=== PATIENT | male | born 1950 | race Caucasian/White ===

== ENCOUNTER 2021-12-23 15:51 | Emergency (ER) | payer MEDICARE, OTHER ==
[~2021-12-23] VITALS: Ht 162.6 cm; Wt 72.6 kg
[2021-12-23] MEDS ORDERED: IPRAT-ALBUT 0.5-3 ML INH (16:14)
[2021-12-23] MEDS ORDERED: COMBIVENT RESPIM4 G1 INH (16:15)
[2021-12-23 16:33] LABS: BASOPHILS ABSOLUTE AUTO 0.03 K/mm3 (0.00-0.23); BASOPHILS PERCENT AUTO 0 % (0-2); EOSINOPHILS ABSOLUTE AUTO 0.53 K/mm3 (0.00-0.68); EOSINOPHILS PERCENT AUTO 7 % (0-6); Hematocrit 45.5 % (37.0-53.0); Hemoglobin 14.2 g/dL (13.5-17.5); IMMATURE GRAN ABSOLUTE AUTO 0.02 K/mm3 (0.00-0.10); IMMATURE GRAN PERCENT AUTO 0 % (0-1); LYMPHOCYTES ABSOLUTE AUTO 0.85 K/mm3 (0.84-5.20); LYMPHOCYTES PERCENT AUTO 11 % (21-46); MONOCYTES ABSOLUTE AUTO 0.99 K/mm3 (0.16-1.47); MONOCYTES PERCENT AUTO 13 % (4-13); Mean Corpuscular HGB 31.1 pg (26.0-34.0); Mean Corpuscular HGB Conc 31.2 g/dL (31.5-36.5); Mean Corpuscular Volume 100 fL (80-100); Mean Platelet Volume 10.1 fL (9.1-12.4); NEUTROPHILS ABSOLUTE AUTO 5.31 K/mm3 (1.96-9.15); NEUTROPHILS PERCENT AUTO 69 % (41-73); Platelet Count 271 K/mm3 (150-400); RDW Coefficient Variation 12.1 % (11.7-14.2); RDW Standard Deviation 45.1 fL (35.1-46.3); Red Blood Cell Count 4.56 M/mm3 (4.30-5.90); White Blood Cell Count 7.73 K/mm3 (4.00-11.30)
[2021-12-23 16:56] LABS: Alanine Aminotransfer (ALT/SGP 23 U/L (12-78); Albumin, Blood 3.6 g/dL (3.4-5.0); Albumin/Globulin Ratio 0.8 (0.8-1.8); Alk Phos 97 U/L (50-136); Anion Gap 3 mmol/L (6-16); Aspartate Aminotrans (AST/SGOT 23 U/L (12-37); Bilirubin, Total 0.4 mg/dL (0.1-1.0); Blood Urea Nitrogen 9 mg/dL (8-24); Bun/Creatinine Ratio 15.7 (12.0-20.0); CO2, Blood 39 mmol/L (21-32); Calcium, Blood 9.2 mg/dL (8.5-10.1); Chloride, Blood 92 mmol/L (98-108); Creatinine, Blood 0.58 mg/dL (0.60-1.20); Globulin, Blood 4.5 g/dL (2.2-4.0); Glomerular Filtration Rate >60 (60-); Glucose, Blood 94 mg/dL (70-99); Potassium, Blood 4.4 mmol/L (3.5-5.5); Sodium, Blood 134 mmol/L (136-145); Total Protein, Blood 8.1 g/dL (6.4-8.2)
== END 2021-12-23 19:20 | disposition home or self-care (01) ==
LOC: ER 15:51
PROVIDERS: Emergency Medicine
DX: R42 Dizziness and giddiness (principal); J44.9 Chronic obstructive pulmonary disease, unspecified; Z87.891 Personal history of nicotine dependence; Z79.899 Other long term (current) drug therapy
CPT/HCPCS: 36415; 71045; 80053; 84484; 85025; 93005; 93010; 94640; 99284-25; J7120

== ENCOUNTER 2022-07-03 08:35 | Inpatient (IN) | payer MEDICARE, OTHER ==
[~2022-07-03] VITALS: Ht 167.6 cm; Wt 49.3 kg
[~2022-07-03 08:35] MED LIST: COMBIVENT RESPIM4 G1 INH; IPRAT-ALBUT 0.5-3 ML INH
[2022-07-03] MEDS ORDERED: ARIPIPRAZOLE2 M1 PO (08:47)
[2022-07-03] MEDS ORDERED: ALBUTEROL1.25 MG/3 IH (08:47)
[2022-07-03 09:31] LABS: BASOPHILS ABSOLUTE AUTO 0.04 K/mm3 (0.00-0.23); BASOPHILS PERCENT AUTO 0 % (0-2); EOSINOPHILS ABSOLUTE AUTO 0.26 K/mm3 (0.00-0.68); EOSINOPHILS PERCENT AUTO 2 % (0-6); Hematocrit 41.9 % (37.0-53.0); Hemoglobin 12.5 g/dL (13.5-17.5); IMMATURE GRAN ABSOLUTE AUTO 0.03 K/mm3 (0.00-0.10); IMMATURE GRAN PERCENT AUTO 0 % (0-1); LYMPHOCYTES ABSOLUTE AUTO 0.63 K/mm3 (0.84-5.20); LYMPHOCYTES PERCENT AUTO 6 % (21-46); MONOCYTES ABSOLUTE AUTO 0.69 K/mm3 (0.16-1.47); MONOCYTES PERCENT AUTO 6 % (4-13); Mean Corpuscular HGB Conc 29.8 g/dL (31.5-36.5); Mean Corpuscular Volume 104 fL (80-100); Mean Platelet Volume 11.1 fL (9.1-12.4); NEUTROPHILS ABSOLUTE AUTO 9.89 K/mm3 (1.96-9.15); NEUTROPHILS PERCENT AUTO 86 % (41-73); Platelet Count 211 K/mm3 (150-400); RDW Coefficient Variation 12.3 % (11.7-14.2); RDW Standard Deviation 47.8 fL (35.1-46.3); Red Blood Cell Count 4.03 M/mm3 (4.30-5.90); White Blood Cell Count 11.54 K/mm3 (4.00-11.30)
[2022-07-03 09:56] LABS: Alanine Aminotransfer (ALT/SGP 15 U/L (12-78); Albumin, Blood 3.3 g/dL (3.4-5.0); Albumin/Globulin Ratio 0.7 (0.8-1.8); Alk Phos 99 U/L (50-136); Aspartate Aminotrans (AST/SGOT 20 U/L (12-37); Bilirubin, Total 0.5 mg/dL (0.1-1.0); Blood Urea Nitrogen 7 mg/dL (8-24); Bun/Creatinine Ratio 18.2 (12.0-20.0); Chloride, Blood 90 mmol/L (98-108); Creatinine, Blood 0.39 mg/dL (0.60-1.20); Globulin, Blood 4.9 g/dL (2.2-4.0); Glomerular Filtration Rate 117 (60-); Glucose, Blood 159 mg/dL (70-99); Potassium, Blood 4.2 mmol/L (3.5-5.5); Sodium, Blood 137 mmol/L (136-145); Total Protein, Blood 8.2 g/dL (6.4-8.2)
[2022-07-03 09:57] LABS: Anion Gap Unable to Calculate mmol/L (6-16); CO2, Blood >45 mmol/L (21-32)
[2022-07-03 10:31] LABS: Influenza A, PCR NEGATIVE (NEGATIVE); Influenza B, PCR NEGATIVE (NEGATIVE); Resp Syncytial Virus, PCR NEGATIVE (NEGATIVE); SARS-Cov-2 (COVID-19) PCR, MMC NEGATIVE (NEGATIVE)
[2022-07-03] MEDS ORDERED: SPIRIVA RESPIMAT4 G2 INH (11:54)
[2022-07-03 16:40] LABS: Base Excess Venous 21.7 mmol/L; Bicarbonate Venous 41.1 mmol/L (24.0-30.0); PCO2 Venous 83.1 mmHg (38-42); pH Blood Venous 7.36 (7.34-7.37)
--- NOTE | 2022-07-03 18:15 | NUR ---
PT TRANSFERRED FROM ER AT 1625. PT ON BIPAP 15/5, FIO2 40%. PT TOLERATING WELL. PT APPEARS AGITATED AND ANXIOUS. PT IS CONFUSED ON SITUATION, TIME, AND "WHY HE IS HERE". PT DENIES SOB. LABORED BREATHING NOTED. SINUS RHYTHM W/HR IN 100'S, SBP 130'S, O2 99% ON BIPAP. FAMILY ARRIVED AT BEDSIDE AROUND 1730, FAMILY UPDATED ON CONDITION AND STATUS. PT SETTLED IN BED AND RESTING. APPEARS TO BE MUCH CALMER.
--- NOTE | 2022-07-03 21:52 | NUR ---
CARE ASSUMPTION: PATIENT IN BED WITH BIPAP IN PLACE AND RT AT BEDSIDE AT BEGINNING OF SHIFT. O2 SATS >94%. PATIENT MILDLY AGITATED WITH BIPAP IN PLACE. RT OKAYED TO REMOVE BIPAP AFTER TREATMENT COMPLETE. NC IN PLACE AT 9L AND PATIENT PLEASANT. IV FLUIDS INFUSING. PATIENT DENIES NEEDS AT THIS TIME. CALL LIGHT IN REACH BUT PATIENT CALLS OUT FOR HELP.
--- NOTE | 2022-07-03 23:08 | NUR ---
UPDATE: PATIENT O2 SATS >96% ON 8L NC. RT IN TO SEE PATIENT FOR TX AND IS CONCERNED ABOUT REPORTED 8-9L BASELINES. RT STATES O2 SATS SHOULD BE IN LOW 90S D/T PATIENT'S HEALTH HX AND HIGHER WILL RESULT IN DANGEROUS LEVELS OF CO2 RETENTION. PATIENT TITRATED TO 5L NC.
[2022-07-04 04:14] LABS: BASOPHILS ABSOLUTE AUTO 0.01 K/mm3 (0.00-0.23); BASOPHILS PERCENT AUTO 0 % (0-2); EOSINOPHILS PERCENT AUTO 0 % (0-6); Hematocrit 32.8 % (37.0-53.0); Hemoglobin 9.8 g/dL (13.5-17.5); IMMATURE GRAN ABSOLUTE AUTO 0.01 K/mm3 (0.00-0.10); IMMATURE GRAN PERCENT AUTO 0 % (0-1); LYMPHOCYTES ABSOLUTE AUTO 0.24 K/mm3 (0.84-5.20); LYMPHOCYTES PERCENT AUTO 3 % (21-46); MONOCYTES ABSOLUTE AUTO 0.23 K/mm3 (0.16-1.47); MONOCYTES PERCENT AUTO 3 % (4-13); Mean Corpuscular HGB 30.7 pg (26.0-34.0); Mean Corpuscular HGB Conc 29.9 g/dL (31.5-36.5); Mean Corpuscular Volume 103 fL (80-100); Mean Platelet Volume 11.6 fL (9.1-12.4); NEUTROPHILS ABSOLUTE AUTO 7.11 K/mm3 (1.96-9.15); NEUTROPHILS PERCENT AUTO 94 % (41-73); Platelet Count 163 K/mm3 (150-400); RDW Coefficient Variation 12.7 % (11.7-14.2); RDW Standard Deviation 47.9 fL (35.1-46.3); Red Blood Cell Count 3.19 M/mm3 (4.30-5.90)
[2022-07-04 04:38] LABS: Albumin, Blood 2.6 g/dL (3.4-5.0); Anion Gap 3 mmol/L (6-16); Blood Urea Nitrogen 10 mg/dL (8-24); CO2, Blood 39 mmol/L (21-32); Calcium, Blood 8.7 mg/dL (8.5-10.1); Chloride, Blood 94 mmol/L (98-108); Creatinine, Blood 0.38 mg/dL (0.60-1.20); Glomerular Filtration Rate 118 (60-); Glucose, Blood 172 mg/dL (70-99); Magnesium, Blood 1.8 mg/dL (1.6-2.4); Phosphorus, Blood 1.6 mg/dL (2.5-4.9); Potassium, Blood 3.8 mmol/L (3.5-5.5); Sodium, Blood 136 mmol/L (136-145)
--- NOTE | 2022-07-04 06:22 | NUR ---
SHIFT SUMMARY: PATIENT O2 DEMANDS HAVE DECREASED TO 5L NC. PATIENT WORE BIPAP FOR A FEW HOURS WHILE SLEEPING. PATIENT DENIES SOB OR CHEST PAIN. SBA TO BSC. PATIENT A&O TO SELF AND LOCATION. OFTEN BECOMES CONFUSED WHY HE IS IN HOSPITAL AND NEEDS TO BE REORIENTED. GENERALLY PLEASANT AND COOPERATIVE. MAKES NEEDS KNOWN - OCCASIONALLY HAS DIFFICULTY WITH REMOTE. BED LOW WITH CALL LIGHT IN REACH. WILL CONTINUE TO MONITOR AND REPORT TO ONCOMING RN.
--- NOTE | 2022-07-04 07:30 | NUR ---
INITIAL ASSESSMENT: Patient is awake sitting up in bed watching TV. He is alert and oriented to self only. He is able to tell me the date after looking at it on his phone. He denies pain at this time. HR sinus tach with pac's in the low 100s. Patient is having runs of SVT this AM, Dr. Skinner at bedside and is aware. LS DIM T/O. Pt has copious amounts of thin aaron sputum, sputum sample sent. Biox 94% on 3L via NC. BT+, pt reports some tenderness to left abd with palpation-he states this is chronic. PPP. He states he would like to go home this morning, Dr. Skinner says he will look into it. Patient assisted OOB to the recliner, chair alarm in place for safety. Call light in reach. Camera on for high fall risk.
--- NOTE | 2022-07-04 11:20 | NUR ---
Update: Dr. Skinner has come back around to see the patient. He would like to start the patient on PO Cardizem for his runs of SVT. PO Cardizem given now. VSS. Pt is still up in the chair waiting to go home. Patient informed we will wait to see how he does with this new medication on board and then notify the MD to see if he is safe to be discharged.
--- NOTE | 2022-07-04 13:17 | NUR ---
Upon receiving a referral for spiritual care, I visit pt. pt is sitting on a chair and and yelling, "I want to go home now!" He stands up as I enter pt's and the alarm goes off until I convince him that he is not going any where at this time. Pt sits and then tells me that he has no clothes to leave with and I explain that I can help with that when he gets ready to leave. I then see a bag of clothes in the corner of the rm. I bring him the clothes and tell him that he has his clothes. We varify that they belong to him and I set them on the bed away from his chair. He then tells me about his who is at home and is ill and not mobile but he does not know the reasons for her physical limitations. He also shares about his daily trips to a tavern near his house where he drinks beer. He tells me that he has not been able to talk to his in days because his phone is not working. I picker his phone, he tells me his contact for his spouse, Mildred, and I call her. They connect on the phone and pt appears quite content while he talks with her. I will continue to remain available to pt and family.
--- NOTE | 2022-07-04 13:45 | NUR ---
Update: Dr. Skinner called, pt has had no more runs of SVT since his dose of PO Cardizem. He states he will be up to see the patient around 2 and discharge him.
[2022-07-04] MEDS ORDERED: AZITHROMYCIN250 MG PO (14:50)
[2022-07-04] MEDS ORDERED: CEFD300 PO (14:51)
[2022-07-04] MEDS ORDERED: DILT120 PO (14:52)
[2022-07-04] MEDS ORDERED: PRED20 PO (14:53)
--- NOTE | 2022-07-04 17:15 | NUR ---
Discharge: Pt had ride set up through [facility]. His ride is here. DC instructions given to the patient and his . Scripts have been called into [facility]. Patient to home via van.
== END 2022-07-04 17:15 | disposition home or self-care (01) | DRG 193 ==
LOC: ER 08:35 → ERHOLD 11:43 → PCU 11:43
PROVIDERS: Emergency Medicine; ADMIT Family Medicine
PROC: 5A09357 Assistance with Respiratory Ventilation, Less than 24 Consecutive Hours, Continuous Positive Airway Pressure (ICD-10-PCS; principal; 2022-07-03)
DX: J18.9 Pneumonia, unspecified organism (principal); J96.21 Acute and chronic respiratory failure with hypoxia; J96.22 Acute and chronic respiratory failure with hypercapnia; J44.0 Chronic obstructive pulmonary disease with (acute) lower respiratory infection; F01.51 Vascular dementia, unspecified severity, with behavioral disturbance; E87.2 Acidosis; I47.1 Supraventricular tachycardia; Z20.822 Contact with and (suspected) exposure to COVID-19; Z79.51 Long term (current) use of inhaled steroids; Z79.899 Other long term (current) drug therapy
CPT/HCPCS: 0241U; 36415; 71045; 80053; 80069; 82803; 83605; 83735; 83880; 84484; 85025; 87070; 87205; 87449; 93005; 93010; 93246; 94640; 94644; 94660; 94664; 94762; 96374; 96375; 97110; 97162; 97166; 97535; 99285-25; A9270; J0456; J0696; J1644; J1885; J2920; J7030; J7050

== ENCOUNTER 2022-09-05 14:42 | Observation (INO) | payer MEDICARE, OTHER ==
[~2022-09-05] VITALS: Ht 167.6 cm; Wt 49.5 kg
[~2022-09-05 14:42] MED LIST changes: +ALBUTEROL1.25 MG/3 IH; +ARIPIPRAZOLE2 M1 PO; +AZITHROMYCIN250 MG PO; +CEFD300 PO; +DILT120 PO; +PRED20 PO; +SPIRIVA RESPIMAT4 G2 INH
[2022-09-05 15:48] LABS: BASOPHILS ABSOLUTE AUTO 0.03 K/mm3 (0.00-0.23); BASOPHILS PERCENT AUTO 1 % (0-2); EOSINOPHILS ABSOLUTE AUTO 0.15 K/mm3 (0.00-0.68); EOSINOPHILS PERCENT AUTO 3 % (0-6); Hematocrit 37.1 % (37.0-53.0); Hemoglobin 10.6 g/dL (13.5-17.5); IMMATURE GRAN ABSOLUTE AUTO 0.02 K/mm3 (0.00-0.10); IMMATURE GRAN PERCENT AUTO 0 % (0-1); LYMPHOCYTES ABSOLUTE AUTO 0.58 K/mm3 (0.84-5.20); LYMPHOCYTES PERCENT AUTO 11 % (21-46); MONOCYTES ABSOLUTE AUTO 0.51 K/mm3 (0.16-1.47); MONOCYTES PERCENT AUTO 10 % (4-13); Mean Corpuscular HGB 31.8 pg (26.0-34.0); Mean Corpuscular HGB Conc 28.6 g/dL (31.5-36.5); Mean Corpuscular Volume 111 fL (80-100); Mean Platelet Volume 11.9 fL (9.1-12.4); NEUTROPHILS PERCENT AUTO 76 % (41-73); Platelet Count 128 K/mm3 (150-400); RDW Coefficient Variation 12.3 % (11.7-14.2); RDW Standard Deviation 50.7 fL (35.1-46.3); Red Blood Cell Count 3.33 M/mm3 (4.30-5.90); White Blood Cell Count 5.39 K/mm3 (4.00-11.30)
[2022-09-05 15:59] LABS: Alanine Aminotransfer (ALT/SGP 31 U/L (12-78); Albumin, Blood 3.3 g/dL (3.4-5.0); Albumin/Globulin Ratio 0.8 (0.8-1.8); Alk Phos 83 U/L (50-136); Aspartate Aminotrans (AST/SGOT 32 U/L (12-37); Bilirubin, Total 0.2 mg/dL (0.1-1.0); Blood Urea Nitrogen 21 mg/dL (8-24); Bun/Creatinine Ratio 37.8 (12.0-20.0); Calcium, Blood 9.1 mg/dL (8.5-10.1); Chloride, Blood 94 mmol/L (98-108); Creatinine, Blood 0.56 mg/dL (0.60-1.20); Globulin, Blood 3.9 g/dL (2.2-4.0); Glomerular Filtration Rate 105 (60-); Glucose, Blood 151 mg/dL (70-99); Potassium, Blood 4.6 mmol/L (3.5-5.5); Sodium, Blood 142 mmol/L (136-145); Total Protein, Blood 7.2 g/dL (6.4-8.2)
[2022-09-05 16:00] LABS: CO2, Blood >45 mmol/L (21-32)
[2022-09-05] MEDS ORDERED: IBUP600 PO (16:00)
[2022-09-05] MEDS ORDERED: MELO7.5 PO (16:00)
[2022-09-05 16:01] LABS: Anion Gap Unable to Calculate mmol/L (6-16)
[2022-09-05] MEDS ORDERED: ALBUTEROL1.25 MG/3 INH (16:01)
[2022-09-05 19:15] LABS: Base Excess Venous 24.1 mmol/L; Bicarbonate Venous 45.7 mmol/L (24.0-30.0); PCO2 Venous 62.6 mmHg (38-42); pH Blood Venous 7.49 (7.34-7.37)
[2022-09-05 21:10] LABS: Source, Urine Clean Catch
[2022-09-05 21:17] LABS: Appearance, Urine Clear (Clear); Bilirubin, Urine Neg (Neg); Blood, Urine 1+ (Neg); Color, Urine Yellow (P-Yellow); Glucose Qualitative, Urine Neg (Neg); Ketones, Urine 2+ (Neg); Leukocyte Esterase, Urine 2+ (Neg); Nitrite, Urine Neg (Neg); Protein, Urine 2+ (Neg); Urobilinogen, Urine NORM (Normal)
[2022-09-05 21:33] LABS: Bacteria Few /hpf; Mucus Mod (0-Heavy); Renal Epithelial Few /hpf (0-Rare); Squamous Epithelial Cells Rare /hpf (Few)
--- NOTE | 2022-09-06 06:20 | NUR ---
ADMISSION/NOC SHIFT SUMMARY PT ARRIVED TO UNIT VIA CART @2301 LAST NIGHT. PT SLID OVER WITH STAFF ASSIST. ON 5L NC. PT ORIENTED TO SELF ONLY, CONFUSED AND NONSENSICAL AT TIMES. HX OF DEMENTIA PER REPORT. AMENABLE TO REORIENTATION. PT ARRIVED IN CLOTHES FROM HOME VISIBLY SOILED WITH OLD AND NEW URINE STAINS. PT ASSISTED OUT OF CLOTHING AND INTO GOWN AND BRIEF. AFIB/FLUTTER ON TELEMETRY AND MAINTAINED ON CARDIZEM GTT @ 5ML/5MG/HR. AFIB RATES DECREASED TO 80S/90S ON THE GTT. PT REQUESTING TO PUT CLOTHES ON AND WANTS TO LEAVE BUT UNABLE TO VERBALIZE WHERE HE IS OR WHY HE IS HERE. DR. BASURTO NOTIFIED OVERNIGHT AND ORDER FOR PRN SEROERICKAL RECEIVED. REDIRECTION WORKING AT THIS TIME. WILL PASS ON TO DAY RN
--- NOTE | 2022-09-06 09:25 | NUR ---
AM NOTE: PATIENT VERY CONFUSED AND WANTING TO GO HOME. ARGUING WITH STAFF AND HARD TO REDIRECT AT TIMES. STATES HE CAN GO HOME AND CALL HIS DOCTOR THEN. ABLE TO TELL ME HIS NAME AND . UNABLE TO EXPLAIN WHY HE IS HERE. SPOKE WITH ON PHONE THIS AM. SOUNDING VERY CONFUSED WELL. UP WITH BSC WITH FWW AND ONE PERSON ASSIST. DENIES NUMBNESS/TINGLING. ON 6-9 L NASAL CANNULA. 6L AT REST. UP TO 9L WHEN UP TO BATHROOM. LUNGS SOUNDING CLEAR AND DIM. SOB WITH EXERCTION. TELE SHOWING AFLUTTER WITH HR 80'S. ON CARDIZEM DRIP THIS AM AT 5, DISCONTINUED AND PO CARDIZEM ORDERED AND GIVEN. DENIES CHEST PAIN/PRESSURE. BP STABLE. VERY MINIMAL EDEMA IN BLE. DENIES ABDOMINAL PAIN/NAUSEA. DRINKING COFFEE AND EATING CHOCOLATE PUDDING THIS AM. USING URINAL AND BSC TO VOID. ATTENDS IN PLACE. DR. MUHAMMAD IN TO TALK WITH PATIENT THIS AM. CARE MANAGEMENT REFERRAL PLACED. WILL DISCUSS WITH FORMAT PROOFREADER. MARY STATES SHE WILL BE IN TO VISIT LATER WITH SON ZACH. CALL LIGHT IN REACH. BED ALARM AND CHAIR ALARM BOTH ON IN BED. WILL CONTINUE TO MONITOR.
--- NOTE | 2022-09-06 16:56 | NUR ---
FAMILY MEETING PLANNED WITH SON ZACH, DAUGHTER IN LAW INDIRA, HAZEL, AND DR. MUHAMMAD TOMORROW AT 0900. PATIENT IN AGGREANCE FOR FAMILY MEETING. HOPES TO HAVE MORE REALISTIC DISCHARGE GOALS WITH FAMILY. HOME O2 EVAL DONE TODAY PATIENT NEEDING UP TO 12L WHEN UP WALKING AROUND. LIPS TURNING BLUE WALKING SHORT DISTANCE. VITAL SIGNS REMAINS STABLE. UP IN CHAIR WITH CHAIR ALARM AT THIS TIME. CALL LIGHT IN REACH.
--- NOTE | 2022-09-06 18:17 | NUR ---
TRANSFER NOTE: PATIENT TRANSFERING TO [facility]. FAMILY AND PATIENT UPDATED. REPORTED OFF TO [facility]AZ VERA. WILL BE TRANSFERING IN RECLINER WITH ALL PERSONAL BELONGINGS. NO ACUTE CHANGES SEE PREVIOUS NOTES. RN ON MED FLOOR UPDATED ON FAMILY MEETING AT 0900 TOMORROW. PATIENT REMAINS ON 7L NASAL CANNULA SATING MID 90'S AT REST.
--- NOTE | 2022-09-06 18:49 | NUR ---
PT ARRIVED TO ROOM 353 VIA RECLINER CHAIR AND CHAIR ALARM RESET IN NEW ROOM. O2 IS RUNNING AT 6L/M BY HIGH FLOW.
[2022-09-06] MEDS ORDERED: COMBIVENT RESPIM4 G1 INH (23:50)
[2022-09-07 06:28] LABS: BASOPHILS PERCENT AUTO 0 % (0-2); EOSINOPHILS ABSOLUTE AUTO 0.02 K/mm3 (0.00-0.68); EOSINOPHILS PERCENT AUTO 0 % (0-6); Hematocrit 34.3 % (37.0-53.0); Hemoglobin 9.9 g/dL (13.5-17.5); IMMATURE GRAN ABSOLUTE AUTO 0.01 K/mm3 (0.00-0.10); IMMATURE GRAN PERCENT AUTO 0 % (0-1); LYMPHOCYTES ABSOLUTE AUTO 0.57 K/mm3 (0.84-5.20); LYMPHOCYTES PERCENT AUTO 11 % (21-46); MONOCYTES ABSOLUTE AUTO 0.48 K/mm3 (0.16-1.47); MONOCYTES PERCENT AUTO 9 % (4-13); Mean Corpuscular HGB 31.3 pg (26.0-34.0); Mean Corpuscular HGB Conc 28.9 g/dL (31.5-36.5); Mean Corpuscular Volume 109 fL (80-100); Mean Platelet Volume 12.1 fL (9.1-12.4); NEUTROPHILS ABSOLUTE AUTO 4.26 K/mm3 (1.96-9.15); NEUTROPHILS PERCENT AUTO 80 % (41-73); Platelet Count 138 K/mm3 (150-400); RDW Coefficient Variation 12.5 % (11.7-14.2); RDW Standard Deviation 49.7 fL (35.1-46.3); Red Blood Cell Count 3.16 M/mm3 (4.30-5.90); White Blood Cell Count 5.34 K/mm3 (4.00-11.30)
--- NOTE | 2022-09-07 06:37 | NUR ---
NOC SHIFT SUMMARY: PATIENT ALERT BUT CONFUSED AT THE BEGINNING OF SHIFT. HIGH FLOW NC O2 AT 9L PT C/O SOB WHICH INCREASED WITH ACTIVITY. PATIENT IS ANXIOUS AND WANTS TO GO AND TAKE CARE OF HIS . PROVIDED SUPPORT TO PATIENT AND EXPLAINED REASON FOR HIS ADMISSION. PATIENT C/O GENERALIZED PAIN ADMIN PRN ACETAMINOPHEN WITH GOOD RESULTS. PT SLEPT THROUGH NIGHT. PT AWAKE AT 0500 ALERT WITH LESS CONFUSION. PT STATES HE "DOES NOT FEEL GOOD" AND IS COOPERATIVE AND LESS FOCUSED ON GOING HOME. VSS.
[2022-09-07 07:01] LABS: Alanine Aminotransfer (ALT/SGP 28 U/L (12-78); Albumin, Blood 3.2 g/dL (3.4-5.0); Albumin/Globulin Ratio 0.9 (0.8-1.8); Alk Phos 71 U/L (50-136); Aspartate Aminotrans (AST/SGOT 25 U/L (12-37); Bilirubin, Total 0.2 mg/dL (0.1-1.0); Blood Urea Nitrogen 17 mg/dL (8-24); Bun/Creatinine Ratio 37.6 (12.0-20.0); Chloride, Blood 93 mmol/L (98-108); Creatinine, Blood 0.45 mg/dL (0.60-1.20); Globulin, Blood 3.5 g/dL (2.2-4.0); Glomerular Filtration Rate 112 (60-); Glucose, Blood 114 mg/dL (70-99); Potassium, Blood 4.3 mmol/L (3.5-5.5); Sodium, Blood 140 mmol/L (136-145); Total Protein, Blood 6.7 g/dL (6.4-8.2)
[2022-09-07 07:05] LABS: Anion Gap Unable to Calculate mmol/L (6-16); CO2, Blood >45 mmol/L (21-32)
--- NOTE | 2022-09-07 18:24 | NUR ---
SHIFT SUMMARY PT IN RECLINER CHAIR MOST OF DAY. 1 PERSON ASSIST UP TO BATHROOM FOR SAFETY ONLY. USING FWW. DENIES PAIN OR RESP DISTRESS. O2 INCREASED TO 12L/M WITH ACTIVITY AND THEN DROPPED BACK DOWN. FAMILY IN AND OUT OF ROOM. HAS BEEN QUITE AGREEABLE TODAY.
--- NOTE | 2022-09-08 11:41 | NUR ---
Spoke with RN [place] yesterday and discussed case. Dr Baron placed PC consult to discuss further regarding hospice and completing POLST. Pt sitting in chair and is pleasantly confused. Pt appears mildly dyspneic and denies pain at this time. Offered supportive visit. Called and spoke with Pt's daughter in law Munira. Reviewed plan of care and confirmed family's understanding of hospice philosophy. Munira reports being at work and is requesting to call this RN back. Palliative Care will remain available
--- NOTE | 2022-09-08 12:03 | NUR ---
Late Entry from Previous note. Received return phone call from daughter in law Munira. Munira reports family will be in this weekend and is agreeable to complete POLST. She reports all family members are on board with plan of placement with hospice services.
--- NOTE | 2022-09-08 19:49 | NUR ---
SHIFT SUMMARY 71-YEAR-OLD MALE, HX DEMENTIA, PLEASANT. WATCHING GOLD MINING ON TELEVISION AND TELLS OF COLD MINING IN [place]. HE ALSO MAKES TOYS OUT OF WOOD. HE IS CONCRETE WITH PAST HISTORY. CONFUSION AT OTHER TIMES, TOLD THINGS THAT WERE NOT GOING ON OVER THE PHONE. CAME IN AND SAT WITH HIM FOR QUITE SOME TIME TODAY, AND HE SEEMED MORE CONTENT. PRIOR TO HER VISIT, HE WHEELED HIMSELF IN HIS RECLINER OUT INTO THE GARZA, O2 LINE IN TOW. HE WANTED TO GO HOME. SEEMED CONTENT AT END OF SHIFT, SITTING IN BED. BED ALARM ON. CALL LIGHT NEARBY. ON 6 L O2. PTN DID HAVE ATRIAL FLUTTER, ON DILTIAZEM. TELEMETRY DISCONTINUED THIS SHIFT. . PALLIATIVE CARE INVOLVED RELATED TO COPD. DNR STATUS. CONTINUE TO MONITOR.
--- NOTE | 2022-09-09 05:08 | NUR ---
SHIFT SUMMARY Pt alert and oriented x 2-3, forgetful at times. VSS. Pt on 7L NC, with continuous pulse ox satting 90%. Has edilma appetite, provided snacks throughout the night. No complaints of pain. Asist x 1 to bedside commode. Urinal at bedside. Bed alarm on.
[2022-09-09 05:21] LABS: BASOPHILS PERCENT AUTO 0 % (0-2); EOSINOPHILS ABSOLUTE AUTO 0.02 K/mm3 (0.00-0.68); EOSINOPHILS PERCENT AUTO 0 % (0-6); Hematocrit 34.1 % (37.0-53.0); Hemoglobin 10.5 g/dL (13.5-17.5); IMMATURE GRAN ABSOLUTE AUTO 0.02 K/mm3 (0.00-0.10); IMMATURE GRAN PERCENT AUTO 0 % (0-1); LYMPHOCYTES ABSOLUTE AUTO 0.52 K/mm3 (0.84-5.20); LYMPHOCYTES PERCENT AUTO 9 % (21-46); MONOCYTES ABSOLUTE AUTO 0.69 K/mm3 (0.16-1.47); MONOCYTES PERCENT AUTO 12 % (4-13); Mean Corpuscular HGB 31.8 pg (26.0-34.0); Mean Corpuscular HGB Conc 30.8 g/dL (31.5-36.5); NEUTROPHILS ABSOLUTE AUTO 4.61 K/mm3 (1.96-9.15); NEUTROPHILS PERCENT AUTO 79 % (41-73); Platelet Count 146 K/mm3 (150-400); RDW Coefficient Variation 12.2 % (11.7-14.2); RDW Standard Deviation 46.9 fL (35.1-46.3); White Blood Cell Count 5.86 K/mm3 (4.00-11.30)
[2022-09-09 05:27] LABS: Mean Corpuscular Volume 103 fL (80-100)
[2022-09-09 05:43] LABS: Magnesium, Blood 2.1 mg/dL (1.6-2.4)
[2022-09-09 05:48] LABS: Alanine Aminotransfer (ALT/SGP 25 U/L (12-78); Albumin/Globulin Ratio 0.8 (0.8-1.8); Alk Phos 62 U/L (50-136); Aspartate Aminotrans (AST/SGOT 20 U/L (12-37); Bilirubin, Total 0.3 mg/dL (0.1-1.0); Blood Urea Nitrogen 12 mg/dL (8-24); Bun/Creatinine Ratio 24.9 (12.0-20.0); Calcium, Blood 8.7 mg/dL (8.5-10.1); Chloride, Blood 88 mmol/L (98-108); Creatinine, Blood 0.48 mg/dL (0.60-1.20); Globulin, Blood 3.7 g/dL (2.2-4.0); Glomerular Filtration Rate 110 (60-); Glucose, Blood 104 mg/dL (70-99); Phosphorus, Blood 2.4 mg/dL (2.5-4.9); Potassium, Blood 3.8 mmol/L (3.5-5.5); Sodium, Blood 138 mmol/L (136-145); Total Protein, Blood 6.7 g/dL (6.4-8.2)
[2022-09-09 05:53] LABS: Anion Gap Unable to Calculate mmol/L (6-16)
[2022-09-09 05:56] LABS: CO2, Blood >45 mmol/L (21-32)
--- NOTE | 2022-09-09 06:14 | NUR ---
Pt with critical lab: CO2 greater than 45. Notified Dr. Hall by telephone. Dr. Hall wants ABG blood draw on pt.
[2022-09-09 06:28] LABS: pH Blood Arterial 7.41 (7.35-7.45)
[2022-09-09 06:29] LABS: PO2 Arterial 67.3 mmHg (80-100)
[2022-09-09 06:33] LABS: PCO2 Arterial 82.7 mmHg (35-45)
--- NOTE | 2022-09-09 06:57 | NUR ---
NOTIFIED DR BLUM ON ABG BLOOD RESULT: pH: 7.405, CO2: 82.7, PAO2: 67.3, BICARB: 48.1, BASE EXCESS: 27.1 NO NEW ORDERS RECEIVED
--- NOTE | 2022-09-09 18:40 | NUR ---
SHIFT SUMMARY PT CAN BE DISAGREEABLE WITH STAFF. HE IS EAGER TO GO HOME AND CAN AVOID BEING COMPLAINT BECAUSE HE ASSUMES HES GOING HOME. HE IS UP 1 ASSIST TO THE BEDSIDE COMMODE. BED IN LOWEST POSITION ANC CALL LIGHT INREACH
--- NOTE | 2022-09-10 07:07 | NUR ---
SHIFT SUMMARY ALERT AND ORIENTED X 1-2. FORGETFUL AT TIMES. VSS. ON 6L NC WITH CONTINUOUS POX. USES URINAL AT BEDSIDE. NEEDS CONSTANT REMINDERS THAT PT IS AT THE HOSPITAL AND NOT AT HOME. ASKING AGAIN WHEN HE IS GOING TO GO HOME. INFORMED PT THAT IT WILL BE UP TO THE DOCTOR. BED ALARM ON.
--- NOTE | 2022-09-10 18:33 | NUR ---
SHIFT SUMMARY NO ACUTE CHANGED. PATIENT SLEPT ALL DAY AND VISITED WITH HIS THIS AFTERNOON. BED IN LOWEST POSITION AND CALL LIGHT IN REACH
--- NOTE | 2022-09-11 04:54 | NUR ---
SHIFT SUMMARY A&O X 2-3, FORGETFUL AT TIMES. VSS. PT NEEDS CONSTANT REMINDERS THAT HE IS AT THE HOSPITAL. PT ASKING MULTIPLE TIMES WHEN HE CAN GO HOME. RT INCREASED PT'S O2 TO 6L, BECAUSE PT TOLD HIM HE USES 6L NC AT HOME. PT WITH BIG APPETITE, ASKING FOR FOOD THROUGHOUT THE NIGHT. GIVEN A SANDWICH, PUDDING X 3, YOGURT, JELLO, AND KISHORE CRACKERS X 2. ATE 100% OF SNACKS GIVEN.
--- NOTE | 2022-09-11 16:47 | NUR ---
SHIFT SUMMARY PT IS VERY DISGRUNTLED. HE WANTS TO GO HOME WITH HIS , BUT HIS IS UPSET AND DOES NOT WANT HIM TO COME HOME. PT THREATENTS TO LEAVE AND WAS TOLD HE HAS THE OPTION TO LEAVE AMA, BUT IS TOO CONFUSED TO ACT ON HIS WISHES. HE IS AGITATED AND REQUIRES REDIRECTION AND REMINDERS TO WHY HE IS NI THE HOSPITAL. PT HAS BEEN TITRATED FROM 6L OF OZ TO 4 AND IS AT 93%. PALLIATIVE HAS BEEN CONSULTED TO DECIDE WHERE PT WILL DISCHARGE. BEED IN LOWEST POSITION AND CALL LIGHT IN REACH
--- NOTE | 2022-09-12 04:38 | NUR ---
SHIFT SUMMARY- PT ALERT TO SELF= PT REFUSED TO GET OUT OF CHAIR AND SLEPT T/O NIGHT IN CHAIR-PT USED URINAL IN THE NIGHT WITHOUT PROBLEMS
[2022-09-12 09:02] LABS: BASOPHILS PERCENT AUTO 0 % (0-2); EOSINOPHILS ABSOLUTE AUTO 0.32 K/mm3 (0.00-0.68); EOSINOPHILS PERCENT AUTO 7 % (0-6); Hematocrit 34.4 % (37.0-53.0); Hemoglobin 10.5 g/dL (13.5-17.5); IMMATURE GRAN ABSOLUTE AUTO 0.01 K/mm3 (0.00-0.10); IMMATURE GRAN PERCENT AUTO 0 % (0-1); LYMPHOCYTES ABSOLUTE AUTO 0.86 K/mm3 (0.84-5.20); LYMPHOCYTES PERCENT AUTO 19 % (21-46); MONOCYTES ABSOLUTE AUTO 0.76 K/mm3 (0.16-1.47); MONOCYTES PERCENT AUTO 16 % (4-13); Mean Corpuscular HGB 30.7 pg (26.0-34.0); Mean Corpuscular HGB Conc 30.5 g/dL (31.5-36.5); Mean Corpuscular Volume 101 fL (80-100); Mean Platelet Volume 11.8 fL (9.1-12.4); NEUTROPHILS ABSOLUTE AUTO 2.71 K/mm3 (1.96-9.15); NEUTROPHILS PERCENT AUTO 58 % (41-73); Platelet Count 186 K/mm3 (150-400); RDW Coefficient Variation 12.6 % (11.7-14.2); RDW Standard Deviation 46.7 fL (35.1-46.3); Red Blood Cell Count 3.42 M/mm3 (4.30-5.90); White Blood Cell Count 4.66 K/mm3 (4.00-11.30)
[2022-09-12 09:20] LABS: Albumin, Blood 2.9 g/dL (3.4-5.0); Bilirubin, Total 0.4 mg/dL (0.1-1.0); Bun/Creatinine Ratio 31.2 (12.0-20.0); Calcium, Blood 8.4 mg/dL (8.5-10.1); Creatinine, Blood 0.45 mg/dL (0.60-1.20); Potassium, Blood 3.6 mmol/L (3.5-5.5); Total Protein, Blood 5.9 g/dL (6.4-8.2)
--- NOTE | 2022-09-12 16:31 | NUR ---
SHIFT SUMMARY PT IS AxOx2-3 WITH INTERMITTENT CONFUSION/FORGETFULNESS. PT IS PLEASANT AND COOPERATIVE WITH CARE, BUT WAS AGITATED ON AND OFF THIS SHIFT. PT VERBALIZES FEELING ANXIOUS TO RETURN HOME. SPOKE WITH , HAZEL ON PHONE AT APPROX 1630, SHE STATED THAT SHE WOULD LIKE TO SEE PATIENT COME HOME ON HOSPICE. SENIOR TECHNICAL WRITER NOTIFIED OF PT'S 'S CURRENT WISHES. PT IS CURRENTLY BREATHING WITHOUT DIFFICULTY ON 6L O2 VIA NC. PT DOES GET SOB WITH ACTIVITY, BUT RECOVERS WELL AT REST. PT IS CURRENTLY SITTING UP IN CHAIR WATCHING TV. VITALS REVIEWED. CALL LIGHT IN REACH. PATIENT DENIES ANY NEEDS AT THIS TIME.
--- NOTE | 2022-09-13 05:21 | NUR ---
SHIFT SUMMARY PT A&OX 1 - PT ON 5L OXYGEN- HOME BASELINE IS 6L- PT UPSET AT BEGINNING OF SHIFT BECAUSE HE WANTS TO BE AT HOME-PLAN IS FOR PT TO DISCHARGE HOME WITH AND HOSPICE
[2022-09-13 05:55] LABS: BASOPHILS PERCENT AUTO 0 % (0-2); EOSINOPHILS PERCENT AUTO 2 % (0-6); Hematocrit 33.8 % (37.0-53.0); Hemoglobin 10.5 g/dL (13.5-17.5); IMMATURE GRAN ABSOLUTE AUTO 0.02 K/mm3 (0.00-0.10); IMMATURE GRAN PERCENT AUTO 0 % (0-1); LYMPHOCYTES ABSOLUTE AUTO 0.72 K/mm3 (0.84-5.20); LYMPHOCYTES PERCENT AUTO 16 % (21-46); MONOCYTES ABSOLUTE AUTO 0.75 K/mm3 (0.16-1.47); MONOCYTES PERCENT AUTO 16 % (4-13); Mean Corpuscular HGB 31.7 pg (26.0-34.0); Mean Corpuscular HGB Conc 31.1 g/dL (31.5-36.5); Mean Corpuscular Volume 102 fL (80-100); Mean Platelet Volume 11.3 fL (9.1-12.4); NEUTROPHILS ABSOLUTE AUTO 3.07 K/mm3 (1.96-9.15); NEUTROPHILS PERCENT AUTO 66 % (41-73); Platelet Count 179 K/mm3 (150-400); RDW Coefficient Variation 12.5 % (11.7-14.2); Red Blood Cell Count 3.31 M/mm3 (4.30-5.90); White Blood Cell Count 4.66 K/mm3 (4.00-11.30)
[2022-09-13 06:20] LABS: Albumin, Blood 2.7 g/dL (3.4-5.0); Albumin/Globulin Ratio 0.9 (0.8-1.8); Bilirubin, Total 0.2 mg/dL (0.1-1.0); Bun/Creatinine Ratio 40.2 (12.0-20.0); Calcium, Blood 8.3 mg/dL (8.5-10.1); Creatinine, Blood 0.47 mg/dL (0.60-1.20); Globulin, Blood 3.1 g/dL (2.2-4.0); Potassium, Blood 4.4 mmol/L (3.5-5.5); Total Protein, Blood 5.8 g/dL (6.4-8.2)
[2022-09-13] MEDS ORDERED: DILT180 PO (10:04)
[2022-09-13] MEDS ORDERED: ACET325 PO (10:05)
[2022-09-13] MEDS ORDERED: ASPI81CH PO (10:06)
--- NOTE | 2022-09-13 17:36 | NUR ---
ALERT AND ORIENTED TO SELF, EASILY CONFUSED, MAKES NEEDS KNOWN, CALL LIGHT WITH IN REACH, 1-2 PERSON TRASNFER, DIMISHED LS, NO SOB, 5L O2, SATS 92-98%, OOB IN CHAIR EATING BREAKFAST, PATIENT TO BE DISCHARGED HOME WITH HOSPICE TOMORROW, ALEXI CARTWRIGHT WORKING ON THE PATIENT AND HOME NEEDS, NO ACUTE CHANGES, WILL RELAY TO PM RN
--- NOTE | 2022-09-14 05:28 | NUR ---
SHIFT SUMMARY PT A&O X 1-2 PT'S IN ROOM AT BEGINNING OF SHIFT- PT SITTING UP TO CHAIR - 5L NASAL CANULA- PT SLEPT IN CHAIR - PT REFUSED TO RETURN TO BED AT BEGINNING OF SHIFT- PT GOT IN BED WITH ASSISTANCE AFTER MIDNIGHT- PT UP AND EATING SNACKS X3 THROUGHOUT THE NIGHT
[2022-09-14 06:24] LABS: BASOPHILS ABSOLUTE AUTO 0.01 K/mm3 (0.00-0.23); BASOPHILS PERCENT AUTO 0 % (0-2); EOSINOPHILS ABSOLUTE AUTO 0.49 K/mm3 (0.00-0.68); EOSINOPHILS PERCENT AUTO 8 % (0-6); Hematocrit 34.5 % (37.0-53.0); Hemoglobin 10.7 g/dL (13.5-17.5); IMMATURE GRAN ABSOLUTE AUTO 0.01 K/mm3 (0.00-0.10); IMMATURE GRAN PERCENT AUTO 0 % (0-1); LYMPHOCYTES ABSOLUTE AUTO 0.91 K/mm3 (0.84-5.20); LYMPHOCYTES PERCENT AUTO 15 % (21-46); MONOCYTES ABSOLUTE AUTO 0.74 K/mm3 (0.16-1.47); MONOCYTES PERCENT AUTO 12 % (4-13); Mean Corpuscular HGB 31.7 pg (26.0-34.0); Mean Corpuscular Volume 102 fL (80-100); Mean Platelet Volume 11.5 fL (9.1-12.4); NEUTROPHILS ABSOLUTE AUTO 4.02 K/mm3 (1.96-9.15); NEUTROPHILS PERCENT AUTO 65 % (41-73); Platelet Count 194 K/mm3 (150-400); RDW Coefficient Variation 12.6 % (11.7-14.2); RDW Standard Deviation 46.9 fL (35.1-46.3); Red Blood Cell Count 3.38 M/mm3 (4.30-5.90); White Blood Cell Count 6.18 K/mm3 (4.00-11.30)
[2022-09-14 06:40] LABS: Albumin, Blood 2.9 g/dL (3.4-5.0); Albumin/Globulin Ratio 0.9 (0.8-1.8); Bilirubin, Total 0.3 mg/dL (0.1-1.0); Bun/Creatinine Ratio 48.7 (12.0-20.0); Calcium, Blood 8.8 mg/dL (8.5-10.1); Creatinine, Blood 0.43 mg/dL (0.60-1.20); Globulin, Blood 3.3 g/dL (2.2-4.0); Total Protein, Blood 6.2 g/dL (6.4-8.2)
--- NOTE | 2022-09-14 11:42 | NUR ---
PT WAS AWAKE DURING SHIFT REPORT, SITTING UP IN BED WITH PILLOWS BEHIND HIS BACK. HX OF END STAGE COPD; BIOX AT 100% 5L NC. O2 DECREASED TO 4L. PT WITH VERY FLAT AFFECT. HX OF DEMENTIA. PT TO GO HOME ON HOSPICE. UP TO CHAIR FOR BREAKFAST; C/O BEING SOB AND EXHAUSTED FROM GETTING UP. BLE'S PALE AND COLD WITH 1+ EDEMA. CONTINENT OF BOWEL AND BLADDER. DR PALOMO HERE TO SEE PT THIS AM, UPDATING PT ON PLAN OF CARE, PT WANTING TO GO HOME. COOLER DELIVERER ARRANGED TRANSPORTATION TO HOME. PT ABLE TO TX TO W/C FOR TRANSPORT. BELONGINGS SENT WITH PT.
== END 2022-09-14 10:01 | disposition hospice, home (50) ==
LOC: ER 14:42 → PCU 22:11 → MEDS 22:12 → ER 22:36 → MEDS 22:36 → PCU 22:36 → MEDS 09-06 18:29 → PCU 09-06 18:29 → MEDS 09-06 22:53
PROVIDERS: Anesthesiology; Emergency Medicine; Family Medicine; Hospitalist; ADMIT Internal Medicine
DX: I48.91 Unspecified atrial fibrillation (principal); F01.50 Vascular dementia, unspecified severity, without behavioral disturbance, psychotic disturbance, mood disturbance, and anxiety; J44.9 Chronic obstructive pulmonary disease, unspecified; J96.11 Chronic respiratory failure with hypoxia; J96.12 Chronic respiratory failure with hypercapnia; D64.9 Anemia, unspecified; Z87.891 Personal history of nicotine dependence
CPT/HCPCS: 36415; 36600; 70450; 71045; 80053; 81001; 82803; 83735; 83880; 84100; 84439; 84443; 84484; 85025; 87086; 93005; 93010; 93306; 94640; 94664; 94667; 94760; 94761; 94762; 96365; 96366; 96372; 96375; 96376; 97110-CQ; 97116; 97129; 97130; 97162; 97165; 97530; 97530-CO; 97530-CQ; 97535; 97535-CO; 99285-25; A9270; G0378; J1650; J2930; J7512